=== PATIENT | female | born 1955 | race Caucasian/White ===

== ENCOUNTER → 2018-04-03 | Outpatient (CLI) | payer OTHER ==
[~2018-04-03] MED LIST: APIX5TAB PO; ASPI-1471 PO; ASPI81TA94 PO; ATOR20TA22 PO; CHOL200074 PO; CLOB15CR22 TP; CLOB15GE7 TP; DABI150C3 PO; DOFE125C3 PO; DOFE500C3 PO; GLUC1TAB13 PO; HYDR30CR10 TP; LEVO112T44 PO; LEVO125T6 PO; LEVO125T77 PO; MAGN500C10 PO; METR45CR10 TP; OMEG1CAP39 PO; OMEG300C PO; POTA20TA10; SPIR25TA80 PO
--- NOTE | 2018-04-03 18:26 | RADIOLOGY IMAGING REPORT ---
FACILITY: [facility] - [place] PATIENT NAME: Mimi Weeks : 1955 MR: [id number] V: [id number] EXAM DATE: ORDERING PHYSICIAN: KAREN WATKINS TECHNOLOGIST: Location: [facility] - [place] Patient: Mimi Weeks : 1955 Visit/Account:[id number] Date of Sevice: 04/03/2018 LIVER HISTORY: Elevated LFTs COMPARISON: None. FINDINGS: Gallbladder: Gallbladder was not well seen although the visualized portion appears grossly unremarkab le Liver: Negative. Common duct: Normal, 3.2 mm diameter. Pancreas: Partially obscured by bowel, visualized aspects unremarkable. Right kidney: Right kidney measures 10.9 cm in length with no evidence of hydronephrosis Upper abdominal aorta and IVC: Patent. Ascites: None visualized. IMPRESSION: Grossly unremarkable right upper quadrant ultrasound although the gallbladder was difficult to visual ize Report Dictated By: Kizzy Gagnon MD at 04/03/2018 6:19 PM Report E-Signed By: Kizzy Gagnon MD at 04/03/2018 6:22 PM WSN:[email or web address]
== END ==
LOC: US 04:43
PROVIDERS: ATTEND Family Medicine
DX: R94.5 Abnormal results of liver function studies (principal)
CPT/HCPCS: 76705

== ENCOUNTER → 2018-04-27 | Outpatient (CLI) | payer OTHER | LOC: LAB 14:54 | PROVIDERS: ATTEND Nurse Practitioner | DX: L82.1 Other seborrheic keratosis (principal) | CPT/HCPCS: 88305 ==